=== PATIENT | female | born 1990 | race Caucasian/White ===

== ENCOUNTER 2018-02-01 16:12 | Inpatient (IN) | payer OTHER ==
[~2018-02-01] VITALS: Ht 157.5 cm; Wt 59.1 kg
[~2018-02-01 16:12] MED LIST: CYCL-1 PO; ONDA4TAB6 PO
[2018-02-01] MEDS ORDERED: normal saline 1000ML IV soln IVB ONE (16:40)
[2018-02-01] MEDS ORDERED: ondansetron/PF 4mg/2ml inj IV ONE (16:40)
[2018-02-01] MEDS ORDERED: morphine 4 MG/ML inj SYRINge IV PRN (16:40)
[2018-02-01] MEDS ORDERED: acetaminophen 325mg tablet PO ONE (16:50)
[2018-02-01 16:54] LABS: BASOPHILS % (AUTO) 0 % (0-1); EOSINOPHILS % (AUTO) 0 % (0-6); HEMATOCRIT 40.7 % (35.0-45.0); HEMOGLOBIN 13.8 g/dl (12.0-16.0); LYMPHOCYTES # (AUTO) 0.3 X10'3 (1.1-4.8); LYMPHOCYTES % (AUTO) 3.4 % (21-51); MEAN CORPUSCULAR HEMOGLOBIN 31.1 PG (27.0-31.0); MEAN CORPUSCULAR VOLUME 91.7 FL (78-98); MEAN PLATELET VOLUME 8.6 FL (7.4-10.4); MONOCYTES # (AUTO) 0.5 X10'3 (0-0.9); MONOCYTES % (AUTO) 5.2 % (2-12); NEUTROPHILS # (AUTO) 9.2 X10'3 (1.8-7.7); NEUTROPHILS % (AUTO) 91.4 % (42-75); PLATELET COUNT 169 X10'3 (140-440); RED BLOOD COUNT 4.44 X10'6 (4.20-5.60); RED CELL DISTRIBUTION WIDTH 12.8 % (11.5-14.5); WHITE BLOOD COUNT 10.1 X10'3 (4.5-11.0)
[2018-02-01 16:57] LABS: CLARITY,URINE SLIGHTLY CLOUDY (Clear); COLOR,URINE YELLOW (Yellow); GLUCOSE, URINE NEGATIVE (Neg); KETONES,URINE 40 mg/dl (Neg); LEUKOCYTE ESTERASE ,URINE MODERATE (Neg); NITRITES, URINE NEGATIVE (Neg); OCCULT BLOOD,URINE MODERATE (Neg); PROTEIN,URINE 100 mg/dl (Neg); UROBILINOGEN,URINE 0.2 E.U/dL (0.2-1.0)
[2018-02-01 17:12] LABS: UA COLLECTION TYPE CLN CATCH MIDSTREAM
[2018-02-01 17:12] LABS: ANION GAP 14 (8-16); BILIRUBIN,TOTAL 0.4 MG/DL (0.1-1.0); BLOOD UREA NITROGEN 6 MG/DL (7-18); BUN/CREATININE RATIO 5.6 (6.6-38.0); CALCIUM 8.3 MG/DL (8.5-10.1); CHLORIDE 100 MMOL/L (99-107); CREATININE 1.08 MG/DL (0.40-0.90); GLUCOSE 112 MG/DL (70-104); POTASSIUM 3.2 MMOL/L (3.5-5.1); SODIUM 137 MMOL/L (135-145); TOTAL CARBON DIOXIDE 22.7 MMOL/L (24-32); TOTAL PROTEIN 7.7 G/DL (6.4-8.2); eGFR 60 ML/MIN
[2018-02-01 17:13] LABS: ALANINE AMINOTRANSFERASE 22 U/L (12-78); ALBUMIN/GLOBULIN RATIO 0.6 (1.1-1.5); ALKALINE PHOSPHATASE 72 IU/L (46-116); ASPARTATE AMINO TRANSFERASE 15 U/L (10-37)
[2018-02-01 17:13] LABS: BACTERIA,URINE 2+ /HPF (Neg); WBC,URINE TNTC /HPF (0-4)
[2018-02-01 17:14] LABS: INR 1.1 INR; PARTIAL THROMBOPLASTIN TIME 34 SECONDS (22-32); PROTHROMBIN TIME 11.4 SECONDS (9.0-12.0)
[2018-02-01 17:14] LABS: SQUAMOUS EPITHELIAL CELL,UR MODERATE /LPF (FEW)
[2018-02-01] MEDS ORDERED: levoFLOXACIN-Levaquin 750MG/D5 150 ML IV ONE (17:20)
[2018-02-01] MEDS ORDERED: potassium Cl 20 mEq SR tablet PO STA (17:22)
[2018-02-01] MEDS ORDERED: NO HOME MEDS (18:05)
[2018-02-01 18:19] LABS: URINE HCG NEGATIVE (NEG)
[2018-02-01] MEDS: normal saline 1000ml 1,000 ML IV SCH (18:41)
[2018-02-01] MEDS ORDERED: potassium Cl 40MEQ/NS 500ml 500 ML IV PRN ×2 (18:45)
[2018-02-01] MEDS ORDERED: magnesium 1gm/100ml D5W IVPB 100 ML IV PRN (18:45)
[2018-02-01] MEDS ORDERED: metoclopramide 5 mg/ml inj IV PRN (18:45)
[2018-02-01] MEDS ORDERED: potassium Cl 20 mEq SR tablet PO PRN (18:45)
[2018-02-01] MEDS ORDERED: magnesium hydroxide 30ml (MOM) UD suspension PO PRN (18:45)
[2018-02-01] MEDS ORDERED: magnesium Cl slow-release 64mg tablet PO PRN (18:45)
[2018-02-01] MEDS ORDERED: morphine 2 MG/ML inj. syringe IV PRN (18:45)
[2018-02-01] MEDS ORDERED: magnesium 4gm in 100ml NS 100 ML IV PRN (18:45)
[2018-02-01] MEDS ORDERED: mag hydrox/Alum hydrox/simeth 30ml oral suspension PO PRN (18:45)
[2018-02-01 20:00] VITALS: BP 120/60
[2018-02-01] MEDS: Melatonin 3mg tablet PO SCH (20:53)
[2018-02-01 23:00] VITALS: BP 123/63
[2018-02-01] MEDS: acetaminophen 325mg tablet PO PRN (23:02)
[2018-02-01] MEDS: ondansetron/PF 4mg/2ml inj IV PRN (23:10)
[2018-02-02] MEDS: normal saline 1000ml 1,000 ML IV SCH ×4 (01:21→23:25)
[2018-02-02 03:00] VITALS: BP 105/64
[2018-02-02] MEDS: ondansetron/PF 4mg/2ml inj IV PRN ×2 (04:26→15:07)
[2018-02-02] MEDS: acetaminophen 325mg tablet PO PRN ×3 (04:26→17:23)
[2018-02-02] MEDS: morphine 2 MG/ML inj. syringe IV PRN ×3 (05:51→15:04)
[2018-02-02 06:00] VITALS: BP 111/67
[2018-02-02 06:14] LABS: BASOPHILS % (AUTO) 0.2 % (0-1); EOSINOPHILS % (AUTO) 0.1 % (0-6); HEMATOCRIT 33.9 % (35.0-45.0); HEMOGLOBIN 11.5 g/dl (12.0-16.0); LYMPHOCYTES # (AUTO) 0.7 X10'3 (1.1-4.8); LYMPHOCYTES % (AUTO) 7.3 % (21-51); MEAN CORPUSCULAR HEMOGLOBIN 31.3 PG (27.0-31.0); MEAN CORPUSCULAR VOLUME 92.2 FL (78-98); MEAN PLATELET VOLUME 9.4 FL (7.4-10.4); NEUTROPHILS % (AUTO) 82.4 % (42-75); PLATELET COUNT 163 X10'3 (140-440); RED BLOOD COUNT 3.68 X10'6 (4.20-5.60); RED CELL DISTRIBUTION WIDTH 12.8 % (11.5-14.5); WHITE BLOOD COUNT 9.7 X10'3 (4.5-11.0)
[2018-02-02 06:26] LABS: ALBUMIN 2.3 G/DL (3.4-5.0); ANION GAP 13 (8-16); BLOOD UREA NITROGEN 5 MG/DL (7-18); BUN/CREATININE RATIO 5.6 (6.6-38.0); CALCIUM 7.6 MG/DL (8.5-10.1); CHLORIDE 103 MMOL/L (99-107); GLUCOSE 104 MG/DL (70-104); MAGNESIUM 1.5 MG/DL (1.5-2.4); POTASSIUM 3.4 MMOL/L (3.5-5.1); SODIUM 135 MMOL/L (135-145); TOTAL CARBON DIOXIDE 19.4 MMOL/L (24-32); eGFR 75 ML/MIN
[2018-02-02] MEDS: K and/or MAG REPLACEMENT MC SCH (08:00)
[2018-02-02] MEDS ORDERED: temazepam 15mg capsule PO PRN (10:15)
[2018-02-02 11:00] VITALS: BP 120/86
[2018-02-02] MEDS ORDERED: levoFLOXACIN 750MG TABLET PO SCH (11:00)
[2018-02-02] MEDS: potassium Cl 20 mEq SR tablet PO PRN ×2 (11:14→21:36)
[2018-02-02] MEDS: ciprofloxacin 250mg tablet PO SCH ×2 (11:14→21:31)
[2018-02-02 15:00] VITALS: BP 111/64
[2018-02-02] MEDS: HYDROcodone/acetaminophen 5mg/325mg tablet PO PRN (17:27)
[2018-02-02 18:00] VITALS: BP 110/77
[2018-02-02] MEDS: Melatonin 3mg tablet PO SCH (21:00)
[2018-02-02] MEDS: lactobacillus rhamnosus 10,000 MMU CELLS/CAPSULE PO SCH (21:31)
[2018-02-02 23:06] VITALS: BP 106/62
[2018-02-03] MEDS: acetaminophen 325mg tablet PO PRN ×3 (01:16→21:15)
[2018-02-03] MEDS: ondansetron/PF 4mg/2ml inj IV PRN ×3 (01:19→21:15)
[2018-02-03] MEDS: HYDROcodone/acetaminophen 10/325mg tab PO PRN ×2 (01:31→11:03)
[2018-02-03 03:11] VITALS: BP 112/69
[2018-02-03] MEDS: normal saline 1000ml 1,000 ML IV SCH ×3 (05:47→14:26)
[2018-02-03 05:58] LABS: ALBUMIN 2.1 G/DL (3.4-5.0); ANION GAP 9 (8-16); BLOOD UREA NITROGEN 4 MG/DL (7-18); BUN/CREATININE RATIO 4.6 (6.6-38.0); CALCIUM 8.9 MG/DL (8.5-10.1); CHLORIDE 105 MMOL/L (99-107); CREATININE 0.87 MG/DL (0.40-0.90); GLUCOSE 98 MG/DL (70-104); POTASSIUM 3.8 MMOL/L (3.5-5.1); SODIUM 138 MMOL/L (135-145); TOTAL CARBON DIOXIDE 23.7 MMOL/L (24-32); eGFR 78 ML/MIN
[2018-02-03 06:03] LABS: BASOPHILS % (AUTO) 0.2 % (0-1); EOSINOPHILS % (AUTO) 0.1 % (0-6); HEMATOCRIT 30.9 % (35.0-45.0); HEMOGLOBIN 10.4 g/dl (12.0-16.0); LYMPHOCYTES # (AUTO) 0.9 X10'3 (1.1-4.8); LYMPHOCYTES % (AUTO) 10.5 % (21-51); MEAN CORPUSCULAR HEMOGLOBIN 31.2 PG (27.0-31.0); MEAN CORPUSCULAR HGB CONC 33.6 % (33.0-36.5); MEAN CORPUSCULAR VOLUME 92.8 FL (78-98); MEAN PLATELET VOLUME 9.5 FL (7.4-10.4); MONOCYTES # (AUTO) 0.9 X10'3 (0-0.9); MONOCYTES % (AUTO) 11.4 % (2-12); NEUTROPHILS # (AUTO) 6.3 X10'3 (1.8-7.7); NEUTROPHILS % (AUTO) 77.8 % (42-75); PLATELET COUNT 154 X10'3 (140-440); RED BLOOD COUNT 3.33 X10'6 (4.20-5.60); RED CELL DISTRIBUTION WIDTH 13.2 % (11.5-14.5); WHITE BLOOD COUNT 8.1 X10'3 (4.5-11.0)
[2018-02-03] MEDS: K and/or MAG REPLACEMENT MC SCH (07:56)
[2018-02-03] MEDS: lactobacillus rhamnosus 10,000 MMU CELLS/CAPSULE PO SCH ×2 (08:04→20:30)
[2018-02-03] MEDS ORDERED: CIPR250T4 PO (09:18)
[2018-02-03] MEDS ORDERED: ONDA4TAB6 PO (09:19)
[2018-02-03] MEDS: ciprofloxacin lact 400MG/200ML 200 ML IV SCH ×2 (10:30→10:58)
[2018-02-03 11:00] VITALS: BP 120/78
[2018-02-03 15:00] VITALS: BP 127/89
[2018-02-03 18:00] VITALS: BP 151/99
[2018-02-03] MEDS ORDERED: ciprofloxacin lact 400MG/200ML 200 ML IV ONE (20:20)
[2018-02-03] MEDS: Melatonin 3mg tablet PO SCH (20:30)
[2018-02-03 22:00] VITALS: BP 110/69
[2018-02-04 02:00] VITALS: BP 104/64
[2018-02-04] MEDS: normal saline 1000ml 1,000 ML IV SCH (02:02)
[2018-02-04 06:02] LABS: BASOPHILS % (AUTO) 0.2 % (0-1); EOSINOPHILS % (AUTO) 0.9 % (0-6); HEMATOCRIT 31.6 % (35.0-45.0); HEMOGLOBIN 10.9 g/dl (12.0-16.0); LYMPHOCYTES % (AUTO) 20.3 % (21-51); MEAN CORPUSCULAR HEMOGLOBIN 31.7 PG (27.0-31.0); MEAN CORPUSCULAR HGB CONC 34.4 % (33.0-36.5); MEAN CORPUSCULAR VOLUME 91.9 FL (78-98); MEAN PLATELET VOLUME 8.6 FL (7.4-10.4); MONOCYTES # (AUTO) 0.6 X10'3 (0-0.9); NEUTROPHILS # (AUTO) 3.4 X10'3 (1.8-7.7); NEUTROPHILS % (AUTO) 66.6 % (42-75); PLATELET COUNT 204 X10'3 (140-440); RED BLOOD COUNT 3.44 X10'6 (4.20-5.60); RED CELL DISTRIBUTION WIDTH 13.4 % (11.5-14.5); WHITE BLOOD COUNT 5.1 X10'3 (4.5-11.0)
[2018-02-04 06:29] LABS: ALBUMIN 2.2 G/DL (3.4-5.0); ANION GAP 10 (8-16); BLOOD UREA NITROGEN 4 MG/DL (7-18); BUN/CREATININE RATIO 4.8 (6.6-38.0); CALCIUM 7.8 MG/DL (8.5-10.1); CHLORIDE 103 MMOL/L (99-107); CREATININE 0.84 MG/DL (0.40-0.90); GLUCOSE 87 MG/DL (70-104); MAGNESIUM 1.9 MG/DL (1.5-2.4); POTASSIUM 3.5 MMOL/L (3.5-5.1); SODIUM 139 MMOL/L (135-145); TOTAL CARBON DIOXIDE 25.9 MMOL/L (24-32); eGFR 81 ML/MIN
[2018-02-04 07:00] VITALS: BP 136/90
[2018-02-04] MEDS: K and/or MAG REPLACEMENT MC SCH (08:07)
[2018-02-04] MEDS: ciprofloxacin lact 400MG/200ML 200 ML IV SCH (08:18)
[2018-02-04] MEDS: lactobacillus rhamnosus 10,000 MMU CELLS/CAPSULE PO SCH (08:18)
[2018-02-04] MEDS: HYDROcodone/acetaminophen 5mg/325mg tablet PO PRN (08:25)
== END 2018-02-04 12:00 | disposition home or self-care (01) | DRG 690 ==
LOC: ER 16:12 → ED HOLD 18:41 → PCU 3S 19:20
PROVIDERS: ADMIT Hospitalist; ATTEND Internal Medicine
DX: N10 Acute pyelonephritis (principal); E87.1 Hypo-osmolality and hyponatremia; E87.6 Hypokalemia; B96.20 Unspecified Escherichia coli [E. coli] as the cause of diseases classified elsewhere; K59.00 Constipation, unspecified; Z88.8 Allergy status to other drugs, medicaments and biological substances; Z79.899 Other long term (current) drug therapy
CPT/HCPCS: 36415; 74176; 80048; 80053; 81001; 81025; 83605; 83735; 84145; 85025; 85610; 85730; 87040; 87070; 87077; 87088; 87186; 96365; 96375; 99285; G0378; J0744; J1956; J2270; J2405; J7030